=== PATIENT | male | born 1990 | race African-American/Black ===

== ENCOUNTER 2017-08-06 17:30 | Emergency (ER) | payer MEDICAID ==
[~2017-08-06] VITALS: Ht 175.3 cm; Wt 79.0 kg
[2017-08-06] MEDS ORDERED: ACETAMINOPHEN 325 MG TABLET PO ONE (18:00)
[2017-08-06 18:37] LABS: INFLUENZA TYPE B NEGATIVE FOR TYPE B (NEGATIVE)
[2017-08-06 20:44] VITALS: BP 137/71
== END 2017-08-06 21:06 | disposition home or self-care (01) ==
LOC: EMS 17:32
DX: H66.93 Otitis media, unspecified, bilateral (principal); J06.9 Acute upper respiratory infection, unspecified
CPT/HCPCS: 87430; 87804; 99284